=== PATIENT | female | born 1985 | race Caucasian/White ===

== ENCOUNTER → 2025-01-12 06:48 | Outpatient (REF) | payer OTHER, SELFPAY | LOC: HWWDC 06:48 | PROVIDERS: ATTENDING PHYSICIAN Obstetrics & Gynecology; FAMILY PHYSICIAN Nurse Practitioner Family | DX: Z12.31 Encounter for screening mammogram for malignant neoplasm of breast (principal) | CPT/HCPCS: 77063; 77067 ==

== ENCOUNTER 2025-02-04 17:18 | Emergency (ER) | payer OTHER, SELFPAY ==
[2025-02-04 17:20] VITALS: BP 115/84
[2025-02-04 18:34] VITALS: BP 116/74; BMI 29.0
[2025-02-04 18:38] VITALS: BP 116/74
[2025-02-04 19:00] VITALS: BP 119/71
[2025-02-04] MEDS: BENADRYL 25 MG IV (19:25)
[2025-02-04] MEDS: REGLAN 10 MG IV (19:25)
[2025-02-04] MEDS: NSS 1000 IV (19:25)
[2025-02-04] MEDS: TORADOL 15 MG IV (19:25)
--- NOTE | 2025-02-04 19:36 | ED.GENMED ---
History of Present Illness
General
Chief Complaint: Numbness
Source: patient
Time Seen by Provider: 02/04/25 18:57
History of Present Illness
History of Present Illness:
39-year-old female with past medical history of migraines presenting to the emergency department for evaluation of a headache that began earlier this afternoon around 1 PM accompanied with a visual aura described to be blurred lines throughout her
bilateral vision, symptoms seem to improve a little bit following the Tylenol but began again around 4 PM which is not typical of her usual migraine still accompanied with the visual aura and then some paresthesia to her left upper extremity
(typical of usual migraine) and posterior right sided neck pain and GERD like symptoms. Patient took Tylenol again but without any relief which is what prompted her to come to the ER. She notes that she gets migraines once every 6 months or so,
follows with neurology but has not seen them in 2 years which is when she last had any neuroimaging which she reports was unremarkable. She does note being diagnosed with strep throat earlier in the week and was given a steroid as well as
antibiotics, feels significantly better following these medications.
Past History
Past History
ED Past Medical History: Other (Migraine headaches)
ED Past Surgical History: None
Social History
Tobacco: Non-smoker
Alcohol: None
Drug: None
Personal:
Living: with family
Employment: Employed
Review of Systems
Review of Systems
All Other Systems: ROS reviewed and negative except as documented in HPI and ROS
Phy Exam
Physical Exam
Physical Exam:
GENERAL: Alert , in no apparent distress
HEAD: Normocephalic atraumatic
EYE: conjunctiva clear, PERRL, EOMI
NECK: Supple, no meningismus
ENT: o/p clr, mmm.
CARDIAC: Regular rate and rhythm
LUNGS: Clear breath sounds bilaterally, no acute respiratory distress, no wheezes/rales/rhonchi
NEUROLOGICAL: Alert and oriented
SKIN: Warm and dry, skin intact.
MUSCULOSKELETAL: well perfused.
PSYCH: Normal and appropriate interaction.
Scores
Heart Failure Risk
Heart Failure Risk Score: Not Applicable
Heart Score for Chest Pain Patients
STEMI patient?: Not applicable
Withdrawal Assessment of Alcohol
Withdrawal Assessment Completed?: Not applicable
Course
Orders/Labs/Results
Orders:
Orders
02/04/25 17:19
Electrocardiogram (*1) Urgent
Reason for Study: Chest Pain
EKG- Treatment ONCE
02/04/25 19:07
CT Head & Neck Angio W/wo IV Urgent
Comment:
Reason For Exam: migraine, posterior neck pain, aura
0.9% Sodium Chloride 1000 ml [Nss] 1,000 ml IV BOLUS
Diphenhydramine [Benadryl] 25 mg IV NOW STA
Ketorolac [Toradol] 15 mg IV NOW STA
Metoclopramide [Reglan] 10 mg IV NOW STA
02/04/25 19:08
Test Result ONCE
02/04/25 19:17
Basic Metabolic Panel Urgent
Complete Blood Count/With Diff Urgent
HCG, Serum Qualitative Screen Urgent
Abnormal Lab Results
02/04/25
19:17
Absolute Neuts (auto) 8.2 H 10^3/uL
(1.4-6.5)
Absolute Monos (auto) 0.8 H 10^3/uL
(0.1-0.6)
Neutrophils % 78.3 H %
(42.2-75.2)
Lymphocytes % 11.7 L %
(20.5-51.1)
Sodium 132 L mmol/L
(135-145)
Glucose 112 H mg/dl
(70-99)
02/04/25 19:17
02/04/25 19:17
Vital Signs
Initial and Last Documented VS:
Initial Vital Signs
Temp Pulse Resp BP Pulse Ox
97.6 F 62 18 115/84 100
02/04/25 17:20 02/04/25 17:20 02/04/25 17:20 02/04/25 17:20 02/04/25 17:20
Last Documented Vital Signs
Temp Pulse Resp BP Pulse Ox
97.3 F 74 17 111/67 96
02/04/25 18:34 02/04/25 18:34 02/04/25 18:34 02/04/25 21:00 02/04/25 21:00
MDM/Problems Addressed
Differential Diagnosis Includes:
Migraine headache
Tension Headache
ICH
Vertebral Dissection
Muscular Spasm
Atypical ACS
CVA/TIA
MDM/Problems Addressed:
39-year-old female presenting to the ER for evaluation of what she believes to be an exacerbation of a chronic migraine however the migraine is slightly different than her typical. She usually has auras and what is described to be hemiplegic
migraines however the aura usually does not wax and wane. The posterior neck pain is also slightly different at as it is more unilateral tonight than previous. No fevers or infectious symptoms. Given the differences in her current headache
symptoms will obtain CTA with vertebral dissection/intracranial hemorrhage among the differential. Migraine cocktail ordered. Disposition pending.
Chronic conditions affecting care: Neurological disorder
Acute Exacerbation and/or Progression of Chronic Illness: Neurological disorder
*Radiology
Radiology exam reviewed: radiology read reviewed
*Pulse Oximetry
SaO2: 100
Oxygen Mode of Delivery: Room air
Patient hypoxic: no
*Critical Care Note
Total Time (30-74mins, 75-104mins- exclusive of procedures): Not Applicable
Data Reviewed
Review of Other/Old Records Reveals: Records and Radiology Studies
Source: patient and records
Patient Management
Escalation/DeEscalation of care consider admission/obs:
Patient reports for headache and ultimately feels well to go home. CTA of the head negative for any acute pathologies. Encourage patient to follow-up with her neurology team. Aware of return precautions to the ER.
ED Attending Note
-
Portions of this chart may have been created with voice recognition software.� Occasional wrong word or��sound alike� substitutions may have occurred due to the inherent limitations of voice recognition software.
Discharge Plan
Departure
Patient Disposition: Home (Routine Discharge)
Date of Disposition: 02/04/25
Time of Disposition: 22:17
Patient with high blood pressure during this ER visit?: No
Discharge Problem:
Headache, migraine
Instructions: Migraine in adults
Prescriptions:
No Action
Ibuprofen
600 mg PO Q8H PRN (Reason: headache)
Imitrex:
1 tab PO DAILY
ondansetron 4 MG tablet,disintegrating
4 mg PO TIDPRN PRN (Reason: nausea) Qty: 15 0RF
pantoprazole [Protonix] 40 mg tablet,delayed release (DR/EC)
40 mg PO DAILY Qty: 14 0RF
ondansetron 4 mg tablet,disintegrating
4 mg PO Q8H PRN (Reason: nausea and vomiting) 4 Days Qty: 10 0RF
cefuroxime axetil 500 mg Tablet
500 mg PO Q12H
prednisone 10 mg Tablets,Dose Pack
10 mg PO DIRECTED
Referrals:
Laura Villalobos CRNP [Family Provider, Family Practice]
Interventions
Interventions:
*Risk Screen - Suicide Last Done: 02/04/25 17:20
*General Assessment Last Done: 02/04/25 17:20
*Neglect/Abuse Screening Last Done: 02/04/25 17:20
*ED- Fall Risk Assessment Last Done: 02/04/25 22:31
*ED COVID-19 Vaccine History Last Done: 02/04/25 17:20
*ED Influenza Vaccine History Last Done: 02/04/25 17:20
*Nursing Disposition Last Done: 02/04/25 22:31
ED- Neurological Assessment Last Done: 02/04/25 19:20
Discharge Date and Time
Discharge Date/Time: 02/04/25 22:32
Print Language: FILIPINO
[2025-02-04 19:42] LABS: Hematocrit 39.1 % (37.0-47.0); Hemoglobin 13.4 g/dL (12.0-16.0); Mean Corp Hgb Conc. 34.3 g/dL (33.0-37.0); Mean Corpuscular Volume 87.1 fL (81.0-99.0); Nucleated Red Blood Cells % 0 %; Platelet Count 317 10^3/uL (130-400); Red Cell Dist. Width 12.9 % (11.5-14.5)
[2025-02-04 19:51] LABS: HCG, Serum Qualitative Screen Negative
[2025-02-04 20:00] VITALS: BP 110/69
[2025-02-04 20:04] LABS: Blood Urea Nitrogen 11 mg/dl (7-17); Calcium 8.8 mg/dl (8.4-10.2); Carbon Dioxide 29 mmol/L (22-30); Chloride 100 mmol/L (98-107); Estimated Creatinine Clearance 103 ml/min; Glucose 112 mg/dl (70-99); Potassium 4.2 mmol/L (3.5-5.1); Sodium 132 mmol/L (135-145); eGFR > 60.00
[2025-02-04 21:00] VITALS: BP 111/67
== END 2025-02-04 22:32 | disposition home or self-care (01) ==
LOC: EMR 17:18
PROVIDERS: Physician Assistant Medical; EMERGENCY PHYSICIAN Emergency Medicine; FAMILY PHYSICIAN Nurse Practitioner Family
DX: G43.109 Migraine with aura, not intractable, without status migrainosus (principal)
CPT/HCPCS: 99284; 96374; 96375 ×2; 96361; 70496; 70498; 80048; 84703; 85025; 93005; Q9967